=== PATIENT | female | born 1950 | race Caucasian/White ===

== ENCOUNTER 2020-07-26 17:37 | Emergency (ER) | payer OTHER, MEDICAID ==
[~2020-07-26] VITALS: Ht 162.6 cm; Wt 61.2 kg
[2020-07-26 17:40] VITALS: BP_SYST 128
[2020-07-26] MEDS ORDERED: GASTROGRAFIN 120 ML ONE (17:59)
== END 2020-07-26 18:30 ==
LOC: SED 17:37
DX: K94.23 Gastrostomy malfunction (principal); I10 Essential (primary) hypertension; E11.9 Type 2 diabetes mellitus without complications; K21.9 Gastro-esophageal reflux disease without esophagitis; E78.5 Hyperlipidemia, unspecified; Z86.79 Personal history of other diseases of the circulatory system
CPT/HCPCS: 43762; 74240; 99284; Q9963